=== PATIENT | male | born 1945 | race Caucasian/White ===

== ENCOUNTER 2017-04-09 11:08 | Emergency (ER) | payer MEDICARE, OTHER ==
[2017-04-09 11:47] VITALS: BP 120/77; PULSE 57; TEMP 98.1; BMI 24.7
[2017-04-09] MEDS ORDERED: ASPIRIN 81 MG CHEWABLE TABLETS PO ONE (14:22)
--- NOTE | 2017-04-09 14:22 | PDOC ---
History of Present Illness - General History Source: Patient Exam Limitations: No Limitations - History of Present Illness Initial Comments: 04/09/17 14:38 The patient is a 72-year-old man with a significant past medical history of hypertension, gastroesophageal reflux disease and lung Ca (status post chemotherapy and radiation; has not seen Onc/Heme in 3 years) who presents to the emergency department via walk-in for further evaluation of abdominal pain. He reports that he has been experiencing non-radiating epigastric pains for years with a rated 6/10 in severity. He describes his pain as an acid-reflux sensations that causes him to have heart garcia. His pain is only present after meals. Patient's symptoms worsen throughout the past 2 days, as he reported experiencing nausea and abdominal distention. No vomiting. No fevers, chills. He denies chest pain, cough, shortness of breath, headache He denies vomiting, diarrhea He denies changes in bowel habits, dysuria, hematuria, urinary frequency/urgency , flank pain. Allergies: No Known Drug Allergies Past Surgical History: Appendectomy. Lung biopsies. Social History: Former smoker. No EtOH and recreational drug use. Primary Care Physician: Dr. 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,CHEMO/RT,CANCER LOWER LIP) Cardiac Disorders: No CVA: No CHF: No Dementia: No Diabetes: No GI Disorders: Yes (GERD) Disorders: No HTN: Yes Hypercholesterolemia: No Liver Disease: No Seizures: No Thyroid Disease: No - Surgical History Abdominal Surgery: Yes Appendectomy: (CLOT) Cardiac Surgery: No Cholecystectomy: No Lung Surgery: No Neurologic Surgery: No Orthopedic Surgery: No - Psycho/Social/Smoking Cessation Hx Anxiety: No Suicidal Ideation: No Smoking History: Former smoker Have you smoked in the past 12 months: No Number of Cigarettes Smoked Daily: 40 If you are a former smoker, when did you quit?: 5 YEARS AGO Information on smoking cessation initiated: No Hx Alcohol Use: No Drug/Substance Use Hx: No Substance Use Type: None Hx Substance Use Treatment: No <Jake Ortez - Last Filed: 04/09/17 15:27> - Past Medical History Allergies/Adverse Reactions: Allergies Allergy/AdvReac Type Severity Reaction Status Date / Time No Known Drug Allergies Allergy Verified 08/05/16 15:46 Home Medications: Ambulatory Orders Alprazolam [Xanax] 1 mg PO BID PRN 06/26/14 Amlodipine Besylate [Norvasc -] 10 mg PO DAILY 06/26/14 Enalapril Maleate [Vasotec -] 10 mg PO DAILY 06/26/14 Metoprolol Succinate [Toprol XL -] 25 mg PO BID 06/26/14 Omeprazole [Prilosec (RX)] 40 mg PO DAILY 04/27/15 Zolpidem Tartrate [Ambien] 10 mg PO HS 04/27/15 Review of Systems - Review of Systems Able to Perform ROS?: Yes Comments:: 04/09/17 14:38 CONSTITUTIONAL: Absent: fever, chills, diaphoresis, generalized weakness, malaise, loss of appetite HEENT: Absent: rhinorrhea, nasal congestion, throat pain, throat swelling, difficulty swallowing, mouth swelling, ear pain, eye pain, visual Changes CARDIOVASCULAR: Absent: chest pain, syncope, palpitations, irregular heart rate , lightheadedness, peripheral edema RESPIRATORY: Absent: cough, shortness of breath, dyspnea with exertion, orthopnea, wheezing, stridor, hemoptysis GASTROINTESTINAL: Present: Epigastric pain. Nausea. Abdomianl Distention. Absent : vomiting, diarrhea, constipation, melena, hematochezia GENITOURINARY: Absent: dysuria, frequency, urgency, hesitancy, hematuria, flank pain, genital pain MUSCULOSKELETAL: Absent: myalgia, arthralgia, joint swelling SKIN: Absent: rash, itching, pallor HEMATOLOGIC/IMMUNOLOGIC: Absent: easy bleeding, easy bruising, lymphadenopathy, frequent infections ENDOCRINE:Absent: unexplained weight gain, unexplained weight loss, heat intolerance, cold intolerance NEUROLOGIC: Absent: headache, focal weakness or paresthesias, dizziness, unsteady gait, seizure, mental status changes, bladder or bowel incontinence PSYCHIATRIC: Absent: anxiety, depression, suicidal or homicidal ideation, hallucinations <Sherly Taylor - Last Filed: 04/09/17 14:50> *Physical Exam - Vital Signs Last Vital Signs Temp Pulse Resp BP Pulse Ox 98.1 F 57 L 18 120/77 96 04/09/17 11:44 04/09/17 11:44 04/09/17 11:44 04/09/17 11:44 04/09/17 11:44 - Physical Exam Comments: 04/09/17 14:39 GENERAL: Well developed, well nourished. Awake and alert. No acute distress. HEENT: Normocephalic, atraumatic. PERRLA, EOMI. No conjunctival pallor. Sclera are non-icteric. Moist mucous membranes. Oropharynx is clear. NECK: Supple. Full ROM. No JVD. CARDIOVASCULAR: Regular rate and rhythm. No murmurs, rubs, or gallops. PULMONARY: No evidence of respiratory distress. Lungs clear to auscultation bilaterally. No wheezing, rales or rhonchi. ABDOMINAL: Soft. There is some epigastric tenderness to deep palpation. Non- distended. No rebound or guarding. No organomegaly. Normoactive bowel sounds. MUSCULOSKELETAL: Normal range of motion at all joints. No bony deformities or tenderness. No CVA tenderness. EXTREMITIES: No cyanosis. No clubbing. No edema. No calf tenderness. SKIN: Warm and dry. Normal capillary refill. No rashes. No jaundice. NEUROLOGICAL: Alert, awake, appropriate. Cranial nerves 2-12 intact. No deficits to light touch and temperature in face, upper extremities and lower extremities. No motor deficits in the in face, upper extremities and lower extremities. Normoreflexic in the upper and lower extremities. Normal speech. PSYCHIATRIC: Cooperative. Good eye contact. Appropriate mood and affect. <Sherly Taylor - Last Filed: 04/09/17 14:50> - Vital Signs Last Vital Signs Temp Pulse Resp BP Pulse Ox 98.1 F 57 L 18 120/77 96 04/09/17 11:44 04/09/17 11:44 04/09/17 11:44 04/09/17 11:44 04/09/17 11:44 <Jake Ortez - Last Filed: 04/09/17 15:27> Heart Score/ECG Review - ECG Intrepretation Comment:: 04/09/17 14:31 Normal sinus rhythm at 54, normal axis, normal intervals, no ST changes <NeelimaJake - Last Filed: 04/09/17 15:27> ED Treatment Course - LABORATORY CBC & Chemistry Diagram: 04/09/17 14:36 04/09/17 14:36 <BrandonSherly - Last Filed: 04/09/17 14:50> - LABORATORY CBC & Chemistry Diagram: 04/09/17 14:36 04/09/17 14:36 <NeelimaJake - Last Filed: 04/09/17 15:27> Medical Decision Making - Medical Decision Making 04/09/17 14:26 The patient is well-appearing and in no acute distress He very clearly denies chest pain and reports that the pain is epigastric He also very clearly reports that his pain only occurs after he eats, and never occurs unless he eats first He denies melena, hematochezia He states that these symptoms are chronic in nature, and he suspects that there secondary to "acid in his stomach" Will obtain labs, chest x-ray, EKG 04/09/17 14:32 04/09/17 14:59 CBC noted Chemistries pending He remains asymptomatic 04/09/17 15:13 Chest x-ray emergency Department interpretation: No acute cardiopulmonary disease 04/09/17 15:21 Labs noted He would like to go home 04/09/17 15:27 Clinical impression: Gastritis I have referred him to gastroenterology and prescribed a PPI I discussed the physical exam findings, ancillary test results and final diagnoses with the patient. I answered all of the patient's questions. The patient was satisfied with the care received and felt comfortable with the discharge plan and treatment plan. The patient will call their primary care physician within 24 hours to arrange follow-up and will return to the Emergency Department with any new, persistent or worsening symptoms. A portion of this note was documented by scribe services under my direction. I have reviewed the details of the note, within reason, and agree with the documentation with the following case summary and management plan written by me. <Jake Ortez - Last Filed: 04/09/17 15:27> *DC/Admit/Observation/Transfer - Attestations Scribe Attestion: 04/09/17 14:39 Documentation prepared by Sherly Taylor, acting as medical photographer for Jake Ortez MD. <Sherly Taylor - Last Filed: 04/09/17 14:50> <Jake Ortez - Last Filed: 04/09/17 15:27> Diagnosis at time of Disposition: Gastritis - Discharge Dispostion Disposition: HOME Condition at time of disposition: Improved - Referrals Referrals: Jatin Damian MD [Staff Physician] - Call tomorrow Joseph Kim MD [Primary Care Provider] - Call tomorrow - Patient Instructions Printed Discharge Instructions: DI for Gastritis Additional Instructions: Return to the emergency department immediately with ANY new, persistent or worsening symptoms. You MUST call and follow up with your doctor tomorrow. Please make sure your doctor reviews the results of your emergency department evaluation.
[2017-04-09] MEDS ORDERED: MAG HYDROX/AL HYDROX/SIMETH 355 ML ORAL.SUSP PO ONE (14:26)
[2017-04-09] MEDS ORDERED: LIDOCAINE VISCOUS 2% ORAL/TOP 100 ML BOTTLE MM ONE (14:26)
[2017-04-09] MEDS ORDERED: PANTOPRAZOLE 40 MG TABLET (FP) PO ONE (14:26)
[2017-04-09 14:47] LABS: EOSINOPHIL 2.9 % (0-4.5); MCH 31.2 pg (25.7-33.7); MCHC 32.9 g/dl (32.0-35.9); MEAN CELL VOLUME 94.7 fl (80-96); MEAN PLT VOLUME 9.1 fl (7.5-11.1); NEUTROPHILS 64.3 % (42.8-82.8); PLATELET COUNT 219 K/MM3 (134-434); RDW 12.7 % (11.9-15.9); WHITE BLOOD COUNT 7.4 K/mm3 (4.0-10.0)
[2017-04-09] MEDS ORDERED: MAG HYDROX/AL HYDROX/SIMETH 30 ML UNIT-DOSE CUP ONE (14:56)
[2017-04-09] MEDS ORDERED: PANTOPRAZOLE 40 MG TABLET (FP) ONE (14:56)
[2017-04-09 15:19] LABS: ALBUMIN 4.4 g/dl (3.4-5.0); ANION GAP 6 (8-16); BILIRUBIN,TOTAL 0.4 mg/dL (0.2-1.0); CALCIUM 9.7 mg/dL (8.5-10.1); CO2 30 mmol/L (21-32); COCKROFT - GAULT 49.24; CREATININE 1.2 mg/dL (0.7-1.3); GLUCOSE,RANDOM 109 mg/dL (74-106); MAGNESIUM 2.4 mg/dL (1.8-2.4); SGOT/AST 17 U/L (15-37); SGPT/ALT 23 U/L (12-78); TOT PROT 7.8 g/dl (6.4-8.2)
[2017-04-09 15:22] LABS: ALK PHOS 78 U/L (45-117); TROPONIN I < 0.02 ng/ml (0.00-0.05)
[2017-04-09 15:30] LABS: INR 1.05 (0.82-1.09); PROTHROMBIN TIME (PATIENT) 11.6 SEC (9.98-11.88)
--- NOTE | 2017-04-10 16:17 | EKG ---
Test Reason : Blood Pressure : / mmHG Vent. Rate : 054 BPM Atrial Rate : 054 BPM P-R Int : 206 ms QRS Dur : 088 ms QT Int : 422 ms P-R-T Axes : 062 025 048 degrees QTc Int : 400 ms SINUS BRADYCARDIA OTHERWISE NORMAL ECG WHEN COMPARED WITH ECG OF 18-AUG-2006 15:04, NO SIGNIFICANT CHANGE WAS FOUND Confirmed by JUAN PABLO BAIN MD ([id number]) on 04/10/2017 4:16:44 PM Referred By: Confirmed By:JUAN PABLO BAIN MD
== END 2017-04-09 16:29 | disposition home or self-care (01) ==
LOC: JER 11:08
DX: K29.70 Gastritis, unspecified, without bleeding (principal); Z87.891 Personal history of nicotine dependence; K21.9 Gastro-esophageal reflux disease without esophagitis; Z85.118 Personal history of other malignant neoplasm of bronchus and lung; I10 Essential (primary) hypertension
CPT/HCPCS: 36415; 71010-TC; 80053; 82550; 83690; 83735; 84484; 85025; 85610; 93005; 93010; 99284-25